=== PATIENT | male | born 1995 | race Caucasian/White ===

== ENCOUNTER 2023-10-05 18:49 | Emergency (ER) | payer BC, SELFPAY ==
[2023-10-05 18:50] VITALS: BP 119/75; PULSE 124; RESP 26; TEMP 38.5; O2SAT 99; BMI 25.7
--- NOTE | 2023-10-05 22:31 | EX.ED.DYSGE1 ---
HPI History of Present Illness Chief Complaint: Fever Narrative Narrative: 28-year-old male presenting with fever, chills, cough, rhinorrhea. Patient also has myalgias. Patient states onset was today. Patient denies any chest pain or shortness of breath. He does not have any nausea. He states he has been drinking fluids. He states he has been taking DayQuil and NyQuil without significant relief. He has not been taking full doses of Tylenol or ibuprofen. Patient has not been tested for any viral sources yet. PFSH PFSH Medical History no medical history Home Medications codeine 10 mg-guaifenesin 100 mg/5 mL oral liquid 5 ml PO Q6H PRN flu symptoms #120 mL 10/05/23 [Rx Last Taken Unknown] ondansetron 4 mg disintegrating tablet 4 mg PO Q8H PRN PRN Nausea #14 tabs 10/05/23 [Rx Last Taken Unknown] Allergy/AdvReac Type Severity Reaction Status Date / Time No Known Allergies Allergy Verified 10/05/23 18:50 Social History Smoking Status: Never smoker ROS ROS ED Constitutional Constitutional ED: Reports chills and fever(s); Denies sweats Eyes Eyes: Denies blurry vision or change in vision ENT ENT ED: Reports rhinorrhea; Denies ear pain Cardiovascular Cardiovascular: Denies chest pain, palpitations or racing heartbeat Respiratory/Chest Respiratory/Chest: Denies cough, dyspnea or sputum Gastrointestinal Gastrointestinal: Denies abdominal pain, constipation, diarrhea, nausea or vomiting Genitourinary Genitourinary ED: Denies dysuria, hematuria or urinary frequency Musculoskeletal Musculoskeletal: Reports myalgias; Denies arthralgias or neck pain Integumentary Denies abscess, Abrasions or rash Neurologic Neurologic: Reports headache(s); Denies paresthesias or weakness Psychiatric Psychiatric: Denies anxiety, depression, suicidal ideation or suicidal thoughts Endocrine Endocrinology: Denies polydipsia or polyuria EXAM Physical Exam Const Vital Signs: 10/05/23 18:50 10/05/23 19:45 Temperature 101.3 F H Temperature Source Temporal Pulse Rate 124 H Respiratory Rate 26 H Respiratory Effort Normal Non-Labored Respiratory Pattern Normal Blood Pressure 119/75 Blood Pressure Mean 89 Pulse Ox 99 Oxygen Delivery Method Room Air Positive well nourished General Appearance ED: NAD; Negative for pallor HEENT Reports moist mucous membranes Eyes PERRL and EOMs intact bilaterally Neck no lymphadenopathy Chest Wall inspection of chest normal and palpation of chest normal Resp normal respiratory effort and clear to auscultation bilaterally Auscultation: Negative for rales, rhonchi or wheezes Cardio regular rhythm Rate: tachycardic GI normal to inspection, nondistended, normoactive bowel sounds Neuro oriented x3 and CN's II-XII intact bilaterally Sensorium / Orientation: alert Motor Exam: strength 5/5 throughout Psych mental status grossly normal Skin no rashes or lesions noted General Skin Exam: Negative for jaundice or pallor MDM MDM MDM Narrative Medical decision making narrative: 28-year-old male presenting with fever, chills, body aches x 1 day. Most likely source is viral etiology. He was tested for COVID, flu, RSV however these were negative. His symptoms really just started so he might be testing negative at this point. Counseled patient the most likely source is viral etiology. [facility] has nausea. He is counseled to use full doses of Tylenol and ibuprofen in alternating doses. He was given cough syrup with codeine and return precautions were discussed. Impression: 1. Viral syndrome Lab Data Attestation: I reviewed the patient's lab results. Discharge Plan Triage Chief Complaint: Fever ED Provider: Pop Adames Dx/Rx/DC Orders Instructions: ED Viral Syndrome (Adult) Prescriptions: New ondansetron 4 mg tablet,disintegrating 4 mg PO Q8H PRN PRN (Reason: Nausea) Qty: 14 0RF codeine-guaifenesin 10-100 mg/5 mL liquid 5 ml PO Q6H PRN (Reason: flu symptoms) Qty: 120 0RF Primary Care Provider: Care Physician,No Primary Referrals: [facility] [Outside] - 3-5 Days Care Physician,No Primary [Primary Care Provider] - Disposition Disposition: Home, Self Care Discharge Date/Time: 10/05/23 20:32
== END 2023-10-05 20:32 | disposition home or self-care (01) ==
PROVIDERS: Emergency Provider Student in an Organized Health Care Education/Training Program; Visit Provider Student in an Organized Health Care Education/Training Program
DX: R50.9 Fever, unspecified (principal); B34.9 Viral infection, unspecified
CPT/HCPCS: 87631; 99282

== ENCOUNTER 2025-06-23 23:02 | Emergency (ER) | payer SELFPAY ==
[2025-06-23 23:03] VITALS: BP 133/95; PULSE 107; RESP 24; TEMP 36.9; O2SAT 98; BMI 24.5
--- NOTE | 2025-06-23 23:38 | EX.ED.DYSGE1 ---
HPI History of Present Illness Chief Complaint: Anxiety Narrative Narrative: Patient was seen and examined after presenting to ED for evaluation he felt very anxious that his heart rate went up into the 160s he states that this was after he took sildenafil not for erectile dysfunction but for the additional sexual gratification. States that it is prescribed to him through an online forearm of some sort he says that he has not taken it regularly for this reason. PFSH PFSH Medical History no medical history Home Medications ?Medication ?Instructions ?Recorded ?Last Taken ?Type NK 06/23/25 Unknown History Allergy/AdvReac Type Severity Reaction Status Date / Time No Known Allergies Allergy Verified 06/23/25 23:03 Family History no significant family his Surgical History no surgical history Social History Smoking Status: Former smoker ROS ROS ED ROS Narrative Pertinent Positives: Tachycardia anxiety sildenafil use for sexual satisfaction also felt little lightheaded at the time Pertinent Negatives: Hypotension chest pain pressure vomiting shortness of breath The remainder of review of systems negative unless otherwise stated in the HPI above. Systems reviewed including constitutional, psychiatric, cardiovascular, respiratory, integument, HENT, gastrointestinal. EXAM Physical Exam Narrative Exam Narrative: Patient is afebrile hemodynamically stable although slightly tachycardic at this point but he is normotensive. Does not appear toxic or in distress. Oxygenating well on room air. Moving all extremities appropriately sitting up comfortably in the room even moving around. Intact and equal MSPs. Const Vital Signs: 06/23/25 23:03 Temperature 98.5 F Temperature Source Temporal Pulse Rate 107 H Respiratory Rate 24 H Blood Pressure 133/95 H Blood Pressure Mean 107 Pulse Ox 98 Oxygen Delivery Method Room Air MDM MDM MDM Narrative Medical decision making narrative: Nursing notes, triage notes, available previous documentation, and vital signs were reviewed. Any discrepancies noted were addressed. Differential Diagnoses: It is possible that he may have had a compensatory tachycardia because of possibly dropping his blood pressure it is unclear whether or not it did drop at all he is normotensive here low suspicion for infectious causes or anything else of that nature EKG: Normal sinus rhythm rate of 86. I do not see evidence of ACS. No evidence of prolonged QT syndrome. No evidence of AV Block. No short OK intervals, wide QRS, or Delta waves indicative of WPW. No evidence of dagger-like q waves or LVH indicative of Hypertrophic Cardiomyopathy. No evidence of Brugada Syndrome. EKG interpretation is noted and agreed to in the EMR. The interpretation of this patient's EKG contributed directly to the care and management of this patient. Previous Documentation Reviewed: None available or applicable at this time. ED Course: Patient presenting with symptoms as stated above he states he is uninsured I did offer him labs he declined but it seems like for the most part his symptoms have since resolved he does not have an erection at this time he feels much better compared to when this episode occurred he states he does have a history where he has had panic attacks but he is not established with anyone or medicated for it I would recommend that he gets in touch with a counselor or a psychiatrist that return precautions follow-up recommendations provided patient stable for discharge. This note was made utilizing voice recognition software. All attempts were made to correct spelling or other errors prior to note completion. However, due to the fast-paced nature of emergency medicine, some errors may still be present. Discharge Plan Triage Chief Complaint: Anxiety ED Provider: Sun Fisher Dx/Rx/DC Orders Clinical Impression: Tachycardia, Anxiety Instructions: Understanding Tachycardia, ED Anxiety Reaction Prescriptions: No Action NK Primary Care Provider: Care Physician,No Primary Referrals: Mimi Silverio MD [Med Staff - [facility], Internal Medicine] Behavioral,[facility] [Group of Physicians, Psychiatry] - As soon as possible Activity Restrictions/Additional Instructions: I would recommend careful use of sildenafil especially for this reason I would also recommend that you establish yourself with a primary care doctor as well as even a counselor for your anxiety that you have had episodes of in the past do not hesitate to return should you ever have any worsening symptoms Print Language: Qatari Disposition Disposition: Home, Self Care
[2025-06-23 23:50] VITALS: BP 133/95; PULSE 78; RESP 16; TEMP 36.9; O2SAT 98
== END 2025-06-23 23:51 | disposition home or self-care (01) ==
PROVIDERS: Emergency Provider Specialist/Technologist Athletic Trainer; Visit Provider Specialist/Technologist Athletic Trainer
DX: F41.9 Anxiety disorder, unspecified (principal); Z87.891 Personal history of nicotine dependence; R00.0 Tachycardia, unspecified
CPT/HCPCS: 93005; 99282